=== PATIENT | male | born 1955 | race African-American/Black ===

== ENCOUNTER 2019-05-25 16:00 | Inpatient (IN) | payer OTHER ==
[~2019-05-25] VITALS: Ht 182.9 cm; Wt 95.3 kg
--- NOTE | 2019-05-25 16:00 | NUR ---
PT TO ROOM VIA EMS STRETCHER, EMS GAVE 2 MG, IM OF VERSED ENROUTE AND PUSHED 2 MG VERSED IVP UPON ARRIVAL. PT HAVING FINE TREAMORS TO UPPER EXTREMITIES.
--- NOTE | 2019-05-25 16:08 | NUR ---
PREPARING TO INTUBATE. 20 MG ETOMIDATE, IVP AT [address] SORIANO 100 MG ROCURONIUM, IVP AT [address] SORIANO 7.5 ET TUBE PLACED WITH NO DIFFICULTY AT [address] SORIANO. + COLOR CHANGE AND + BILATERAL AUSCULTATION NOTED BY NADIR TRACY. TUBE 21 AT THE LIP AND SECURED WITH COMMERCIAL TUBE NORRIS. 1620: 18F OG PLACED BY DR SORIANO. PROPOFOL INITIATED AT 30MCG/KG/MIN AT 1623 DR SORIANO PUSHED 50 MG OF PROPOFOL, BP 201/106. 16 F KHOURY PLACED BY Toni TRACY WITH NO DIFFICULTY AT 1620.
[2019-05-25] MEDS ORDERED: DILANTIN-1125 MG/5 M PO (17:05)
[2019-05-25] MEDS ORDERED: ADLT ASA LOW81 MG PO (17:06)
[2019-05-25] MEDS ORDERED: DEPAKOTE500 MG PO (17:06)
[2019-05-25] MEDS ORDERED: LISINOPRIL10 M1 PO (17:06)
[2019-05-25] MEDS ORDERED: LIPITOR20 MG PO (17:07)
[2019-05-25 17:12] LABS: URINE BILIRUBIN - DIPSTICK NEGATIVE (NEGATIVE); URINE BLOOD DIPSTICK SMALL (NEGATIVE); URINE COLOR YELLOW; URINE GLUCOSE - DIPSTICK NEGATIVE (NEGATIVE); URINE KETONE NEGATIVE (NEGATIVE); URINE LEUK ESTERASE NEGATIVE (NEGATIVE); URINE NITRITE - DIPSTICK NEGATIVE (Negative); URINE PROTEIN - DIPSTICK NEGATIVE (NEG-TRACE); URINE UROBILINOGEN - DIPSTICK 0.2 E.U./dL (0.2)
--- NOTE | 2019-05-25 17:12 | NUR ---
PT REMAINS STABLE , INTUBATED ON VENTILATOR AT 16 BREATHS PER MINUTE. BP 146/89, P 97, O2 SAT 100%. FC TO BSD 400 CC CLEAR STRAW COLORED URINE. APPROX 100CC YELLOW LIQUID VIA OGTUBE TO SUCITON. PT WITH HANDCUFF TO LT WRIST AND LT RAIL, 2 DOC GUARDS IN ROOM
[2019-05-25 17:13] LABS: HEMATOCRIT 39.6 % (39.0-50.0); HEMOGLOBIN 12.2 g/dl (14.0-18.0); IMMATURE GRANULOCYTES 1.4 % (0.0-5.0); MEAN CELL VOLUME 92.7 fL CALC (80.0-100.0); MEAN CORPUSCULAR HGB 28.6 pG CALC (26.0-32.0); MEAN CORPUSCULAR HGB CONC 30.8 g/L CALC (32.0-36.0); NEUT# 3.99 thou/uL (1.82-7.42); RED BLOOD COUNT 4.27 mill/uL (4.70-6.10); RED CELL DISTRI WIDTH 15.1 % (11.5-15.5)
--- NOTE | 2019-05-25 17:20 | NUR ---
PT TAKEN TO CT WITH NURSE AND RT ON BAG ASSIST VENTILATION VIA ET TUBE. MONITORS ASSESSED.
[2019-05-25 17:26] LABS: ALBUMIN 4.1 g/dL (3.2-5.0); ALKALINE PHOSPHATASE 86 u/l (38-126); ANION GAP 16 (6-22 (CALC)); BILIRUBIN, TOTAL 0.5 mg/dL (0.0-1.4); BUN 11 mg/dL (8-23); BUN/CREATININE RATIO 14 (12-20 (CALC)); CARBON DIOXIDE 28 mmol/l (22-30); CHLORIDE 97 mmol/l (95-108); CREATININE 0.8 mg/dL (0.7-1.3); GFR > 60 ML/MIN (>=60 (CALC)); GFR FOR AFR.AMER. > 60 ML/MIN (>=60 (CALC)); LIPASE 68 u/l (23-300); POTASSIUM 4.2 mmol/l (3.5-5.1); SGOT/AST 38 u/l (19-48); SODIUM 137 mmol/l (137-146); TOTAL PROTEIN 7.7 g/dL (6.3-8.2)
[2019-05-25 17:37] LABS: MYOGLOBIN 342 ng/mL (0 - 121)
[2019-05-25 17:40] LABS: BARBITURATES POSITIVE (NEGATIVE); COCAINE NEGATIVE (NEGATIVE); METHADONE NEGATIVE (NEGATIVE); OXCYCODONE NEGATIVE (NEGATIVE); TETRAHYDROCANNABIONOL NEGATIVE (NEGATIVE); TRICYLIC ANTIDEPRESSANTS NEGATIVE (NEGATIVE)
[2019-05-25 17:44] LABS: URINE SQUAMOUS EPITHELIAL CELL FEW EPI/hpf (0-FEW)
--- NOTE | 2019-05-25 18:00 | NUR ---
DR SORIANO AT BEDSIDE AND LUMBAR PUNCTURE PERFORMED AND RETURNED 4 VIALS OF CLEAR FLUID FOR SPECIMEN. PT CONTINUES ON PROPOFAL GTT INCREASED TO 60MCG/KG/MIN BP 210/106. NO ACITVE MOVEMENT NOTED. ET TUBE VERIFIED PLACEMENT , 02 SAT 100% ON VENTILATOR ASSISTED BREATHING. F/C EMPTIED OF 1600CC CLEAR YELLOW URINE AT THIS TIME. IVF BOLUS CONTINUES ORDERED.MOUTH SUCTIONED OF LARGE AMOUNT CLEAR AND BLOOD TINGED MUCOUS.
--- NOTE | 2019-05-25 18:51 | NUR ---
RECEIVED REPORT. DIPRIVAN CONTINUES TO INFUSE. BEDRESTING. EYES CLOSED. COEERCTIONAL OFFICERS AT BEDSIDE
--- NOTE | 2019-05-25 19:00 | NUR ---
BEDRESTING. INTUBATED. DIPRIVAN INFUSING. NO TONIC-CLONIC ACTIVITY NOTED AT THIS TIME
--- NOTE | 2019-05-25 19:45 | NUR ---
LEVOPHEN NOT INITIATED B/P NOT ELEVATED PT INTUBATED
--- NOTE | 2019-05-25 20:45 | NUR ---
AWAITNG LAB RESULTS TO DETERMINE FURTHER PLAN OF CARE. CORRECTIONAL OFFICERS NOTIFIED
--- NOTE | 2019-05-25 21:33 | NUR ---
RESTING. STARTING TO MOVE HANDS ABOUT BED. HANDLEING GENTIALS AND RUBBING CHEST. MD NOTIFIED. SOFT WRIST RESTRAINTS APPLIED TO PREVENT EXTUBATION. AWAITING ORDERS FOR ADMISSION
--- NOTE | 2019-05-25 21:48 | NUR ---
CALLED FOR REPORT. NURSE TO CALL BACK
--- NOTE | 2019-05-25 21:55 | NUR ---
REPORT GIVEN TO SIMA LECHUGA
--- NOTE | 2019-05-25 22:00 | NUR ---
EMPTIED 1800ML CLEAR URINE FROM KHOURY DRAINAGE BAG. OG TO LIS. HAD OBTAINED 200ML BILE COLORED DRAINAGE. VENT SETTINGS: AC, FI02 100%M TV 500, RATE 16, PEEP 8. ETT IS SECURED IN CENTER OF LIPS WITH BITE BLOCK TLCL IN PLACE ON RIGHT CHEST. PERIPHERAL SITE RIGHT FOREARM HAS DIPRIVAN INFUSING. NO NOTED SEIZURE ACTIVITY NOTED ON THIS SHIFT TO ICU VIA STRETCHER.
--- NOTE | 2019-05-25 22:26 | NUR ---
63 yr old black male admitted icu5 per stretcher from er. transferred x3 to bed. bed weight obtained. vent cont assisted by pt. cardiac rehab nurse shows sinus tach. #18 rfa diprivan infusing @ 60mcg/kg/min. rij tlc in place. ms infusing @ 100cchr. og in place & clamped. lou cath in place. urine clear yellow. bilat feet shackled together. guards x2 @ bedside. fall precautions initiated.
[2019-05-25 22:30] VITALS: BP 162/100
[2019-05-25 22:45] VITALS: BP 160/100
[2019-05-25 23:00] VITALS: BP 165/109; BP 168/82
[2019-05-25 23:15] VITALS: BP 164/92; BP 171/104
--- NOTE | 2019-05-25 23:30 | NUR ---
rt here. abgs drawn.
[2019-05-26] VITALS (26 sets, daily range): BP systolic 91–181; BP diastolic 62–110
--- NOTE | 2019-05-26 02:00 | NUR ---
eyes closed. vent cont assisted by pt. rn cardiac shows sinus tach hr 101.
--- NOTE | 2019-05-26 04:00 | NUR ---
vent cont assisted by pt. monitoring coordinator shows sinus tach hr 104.
--- NOTE | 2019-05-26 06:00 | NUR ---
no acute change. guards x2 remain @ bedside.
--- NOTE | 2019-05-26 06:15 | NUR ---
xray here. pcxr obtained.
--- NOTE | 2019-05-26 07:30 | NUR ---
pt intubated and sedated; no apparent distress noted; officers x2 at bedside; assessment completed at this time; pt sedated; reacts to painful stimuli; no n/v noted; no s/sx of pain noted; resp even and unlabored; lungs clear bilat; skin color wnl; vent settings maintained at AC mode, TV 500, rate 16, peep 8.0, 50% FiO2; 7.5 ETT intact secured at the 24cm top lip line; hr reg; strong pulses; no edema noted; st on monitor; bilat scds intact; abd soft with bs present; no bm noted per short story writer; lou to gravity draining cloudy yellow urine; cath strap intact; #18 patent to rfa with propofol infusing at 60 mcg/kg/min; TLC intact to RIJ with ivf infusing without complication; no redness or edema noted at site; repositioned to right side; hob elevated; oral care; will continue to monitor closely
--- NOTE | 2019-05-26 08:10 | NUR ---
ATILIO Talley called per typewriter assembler; informed of temp of 102.0; no tylenol ordered/ no am labs/no antibiotics; blood cultures x2 on admit obtained; orders to be placed
--- NOTE | 2019-05-26 08:35 | NUR ---
CLIENT PROFESSIONAL Vest present at bedside to assess pt;
--- NOTE | 2019-05-26 08:47 | NUR ---
swabbed for flu and strep; will continue at this time
--- NOTE | 2019-05-26 08:49 | NUR ---
[facility] called per account underwriter; account underwriter requesting medication record/ medical records
[2019-05-26 08:56] LABS: HEMATOCRIT 40.9 % (39.0-50.0); HEMOGLOBIN 12.9 g/dl (14.0-18.0); IMMATURE GRANULOCYTES 0.4 % (0.0-5.0); MEAN CELL VOLUME 91.5 fL CALC (80.0-100.0); MEAN CORPUSCULAR HGB 28.9 pG CALC (26.0-32.0); MEAN CORPUSCULAR HGB CONC 31.5 g/L CALC (32.0-36.0); NEUT# 10.95 thou/uL (1.82-7.42); RED BLOOD COUNT 4.47 mill/uL (4.70-6.10); RED CELL DISTRI WIDTH 15.3 % (11.5-15.5)
--- NOTE | 2019-05-26 09:02 | NUR ---
call received from nurse Della from [facility]; MAR and medical records requested; [facility] nurse states fax machine is "locked up"; comic book writer request copies to be faxed for MD review; [facility] nurse was able to comfirm dilatin dose of 125mg/ml with pt receiving 6ml total a dose of 150mg
[2019-05-26 09:12] LABS: ALBUMIN 3.4 g/dL (3.2-5.0); ALKALINE PHOSPHATASE 73 u/l (38-126); ANION GAP 13 (6-22 (CALC)); BUN 11 mg/dL (8-23); BUN/CREATININE RATIO 13 (12-20 (CALC)); CARBON DIOXIDE 30 mmol/l (22-30); CHLORIDE 98 mmol/l (95-108); CREATININE 0.9 mg/dL (0.7-1.3); GFR > 60 ML/MIN (>=60 (CALC)); GFR FOR AFR.AMER. > 60 ML/MIN (>=60 (CALC)); POTASSIUM 4.3 mmol/l (3.5-5.1); SGOT/AST 31 u/l (19-48); SODIUM 136 mmol/l (137-146)
[2019-05-26 09:16] LABS: BILIRUBIN, TOTAL 0.8 mg/dL (0.0-1.4)
--- NOTE | 2019-05-26 10:20 | NUR ---
intubated and sedated; repositioned with oral care; no apparent distress noted; st on monitor; lou to gravity; vent intact and maintained; officer x2 at bedside; pt move to ICU bed 1; will continue to monitor
--- NOTE | 2019-05-26 10:45 | NUR ---
awakening trial completed; pt able to open eyes and track this filing writer; diprivan resumed at 50mcg/kg/min; will continue to monitor
--- NOTE | 2019-05-26 11:02 | NUR ---
pt placed on droplet precaution; typewriter assembler explained precautions to [facility] officers and education provided; will continue to monitor
--- NOTE | 2019-05-26 11:22 | NUR ---
Dr Villar present at bedside to assess pt and discuss plan of care
--- NOTE | 2019-05-26 12:05 | NUR ---
intubated and sedated; guards x2 at bedside; no apparent distress noted; vent settings maintained; lou to gravity; og clamped; st on monitor; repositioned to left side with oral care and rom; restraints intact to bilat magazine writer; will continue to monitor
--- NOTE | 2019-05-26 13:20 | NUR ---
DIRECTOR MEDICARE SALESAnderson Dorantest informed of hypotension; orders to be placed
--- NOTE | 2019-05-26 13:35 | NUR ---
fluid bolus initiated; will continue to monitor
--- NOTE | 2019-05-26 14:00 | NUR ---
intubated and sedated; no apparent distress noted; repositioned; sr/pvc on monitor; lou to gravity; vent patent and maintained with prev settings; guards x2 at bedside; will continue to monitor
--- NOTE | 2019-05-26 16:00 | NUR ---
intubated and sedated; no apparent distress noted; resp even and unlabored; vent intact and maintained; lou to gravity; og tube intact; sr/ pvc on monitor; repositioned to right side; oral care; restraints released and reapplied; guards x2 present at bedside; call light within reach; will continue to monitor
--- NOTE | 2019-05-26 18:00 | NUR ---
pt intubated and sedated; no apparent distress noted; resp even and unlabored; vent intact and maintained; sr/ pvc on monitor; lou to gravity; og intact; restraints remains in place; guards x2 at bedside; remains shackled biilat ankles; right wrist shackled to bed; repositioned;
--- NOTE | 2019-05-26 19:00 | NUR ---
vent cont assisted by pt. air sampling and monitoring shows sinus rhythm pvcs hr 86. #18 lfa propofol gtt cont. rij tlc in place. ns infusing @ 100cchr. og in place & clamped. lou cath in place. urine cloudy pavel. bilat scds, fall & droplet precautions cont. requires total care for all needs. skackles cont to bilat ankles & lt wrist. guards x2 @ bedside.
--- NOTE | 2019-05-26 19:00 | NUR ---
vent cont assisted by pt. campus monitor shows sinus rhythm pvcs. #18 rfa diprivan infusing well. rij tlc in place. ns infusing @ 100cchr. og in place & clamped. bilat wrist restrints in place. shackles cont to bilat ankles & lt wrist. lou cath in place. urine cloudy pavel. requires total care with all needs. turned & repositioned. guards x2 @ bedside.
--- NOTE | 2019-05-26 22:00 | NUR ---
vent cont assisted by pt. no distress.
[2019-05-27] VITALS (21 sets, daily range): BP systolic 110–162; BP diastolic 72–96
--- NOTE | 2019-05-27 00:01 | NUR ---
eyes closed. no apparent distress. lou draining well.
--- NOTE | 2019-05-27 02:00 | NUR ---
vent cont assisted by pt. monitoring tech shows sinus rhythm pvcs hr 92.
--- NOTE | 2019-05-27 05:00 | NUR ---
blood drawn & sent to lab. am care given x2 assists.
--- NOTE | 2019-05-27 05:12 | NUR ---
AFTER ABG RESULT, FIO2 DECREASED TO 40% AND PEEP TO 5.
[2019-05-27 05:13] LABS: HEMATOCRIT 37.9 % (39.0-50.0); HEMOGLOBIN 11.7 g/dl (14.0-18.0); MEAN CELL VOLUME 93.6 fL CALC (80.0-100.0); MEAN CORPUSCULAR HGB 28.9 pG CALC (26.0-32.0); MEAN CORPUSCULAR HGB CONC 30.9 g/L CALC (32.0-36.0); RED BLOOD COUNT 4.05 mill/uL (4.70-6.10); RED CELL DISTRI WIDTH 15.3 % (11.5-15.5)
[2019-05-27 05:31] LABS: ALKALINE PHOSPHATASE 67 u/l (38-126); ANION GAP 10 (6-22 (CALC)); BUN 15 mg/dL (8-23); BUN/CREATININE RATIO 15 (12-20 (CALC)); CARBON DIOXIDE 31 mmol/l (22-30); CHLORIDE 102 mmol/l (95-108); GFR > 60 ML/MIN (>=60 (CALC)); GFR FOR AFR.AMER. > 60 ML/MIN (>=60 (CALC)); POTASSIUM 4.4 mmol/l (3.5-5.1); SGOT/AST 24 u/l (19-48); SODIUM 138 mmol/l (137-146); TOTAL PROTEIN 6.3 g/dL (6.3-8.2)
--- NOTE | 2019-05-27 05:45 | NUR ---
xray here. pcxr obtained.
--- NOTE | 2019-05-27 08:00 | NUR ---
PT SEEN AT REST IN THE BED, INTUBATED AND SEDATED. EYES OPEN SLIGHTLY WHEN MOVED, NO INTERACTION WITH NURSE. LUNGS CLEAR, VENTED. PT TURNED Q2H PER SEDATION. KHOURY TO GRAVITY, KELLEY CLOUDY OUTPUT. WRIST RESTRAINTS PER SLIGHT MOVEMENT AT TIMES, PROTECTS FROM PULLING. OG IN PLACE, CLAMPED. SECRETIONS FROM MOUTH, WASHCLOTH PLACED UNDER CHIN. WEAK PEDAL PULSES. GUARDS X 2 AT BEDSIDE AT ALL TIMES.
--- NOTE | 2019-05-27 10:00 | NUR ---
PT REPOSITIONED IN THE BED FOR COMFORT AND PRESERVATION OF SKIN INTEGRITY. PT REMAINS SEDATED, INTUBATED. NINO TRIMBLE HAS SEEN PT THIS MORNING.
--- NOTE | 2019-05-27 12:00 | NUR ---
PT BEFORE, SAME VENT SETTINGS, TURNED Q2H TO PREVENT SKIN BREAKDOWN. PT WAS SUCTIONED ORALLY PER SECRETIONS.
--- NOTE | 2019-05-27 14:00 | NUR ---
PT SEEN BY DR LING AT THIS TIME. DIPRIVAN WEANING HAS BEGUN FOR A TRIAL PRESSURE SUPPORT ONLY. PT SEEN MOVING AROUND MORE, BUT NOT YET AWAKE. PT PROVIDED TYLENOL FOR TEMP 101.4 VIA OG TUBE.
--- NOTE | 2019-05-27 14:02 | NUR ---
Vancomycin consult Age: 63 yo Serum creatinine: 1 mg/dL Height: 72.0 Inches Weight (kg): 90.9 IBW (kg): 77.60 Dosing wt(kg): 90.9 Estimated Creatinine clearance (ml/min): 81.9 Vd (liters): 63.6 (factor used: 0.7 L/kg) Ervin (hr-1): 0.072 Half life (hrs): 9.63 Vancomycin 1000 mg q 12 hrs starting at 1500 today with an expected Cpeak of 25 mcg/ml and an expected Ctrough of 15 mcg/ml. next trough on 05/29/19 at 0230
--- NOTE | 2019-05-27 15:20 | NUR ---
PT HAS BEEN WEANED DOWN TO 5 MKM, STARTING TO MOVE AROUND MORE WHILE IN THE BED. RESPIRATORY THERAPIST HAS BEEN MONITORING PT, NO CONCERNS WHEN EVALUATED.
--- NOTE | 2019-05-27 16:40 | NUR ---
PT TITRATED BACK TO 50 JA/KG/MIN PREVIOUSLY RUNNING. PT SEDATED, WILL ATTEMPT EXTUBATION TOMORROW.
--- NOTE | 2019-05-27 18:45 | NUR ---
REPORT FROM Leda CASTILLO RN. ASSUMED PT. CARE.
--- NOTE | 2019-05-27 19:19 | NUR ---
PT. RESTING COMFORTABLY ON THE VENT IN NO DISTRESS. GUARDS AT BEDSIDE AT THIS TIME. WILL CONTINUE TO CLOSELY MONITOR.
--- NOTE | 2019-05-27 19:55 | NUR ---
PT. FOUND RESTING IN BED IN NO DISTRESS ON THE VENT. SINUS TACH IN THE LOW 100'S. SPO2 IS 100% ON 30% FIO2. BOWEL SOUNDS ACTIVE. DISTIL PULSES INTACT. ET TUBE 23 AT THE LIP. ROM AND RELEASE PROVIDED AND RESTRAINTS REAPPLIED. PT. WITH METAL LEG SHACKLES IN PLACE BY SECURITY GUARDS THAT REMAIN AT BEDSIDE. PROPOFOL DRIP INFUSING AT 50 MCG AT THIS TIME. REMAINS STABLE. BP SLIGHTLY ELEVATED AT 140 SYSTOLIC. CALL LIGHT REMAINS WITHIN REACH. LUNGS CTA. NO EDEMA NOTED. S1, S2 NOTED. WILL CONTINUE TO CLOSELY MONITOR.
--- NOTE | 2019-05-27 20:15 | NUR ---
PT. FOUND WITH NG TUBE CLAMPED AT THIS TIME. CHANGED TO LIT WITH IMMEDIATE RETURN OF GREEN GASTRIC CONTENT. WILL CONTINUE TO CLOSELY MONITOR.
--- NOTE | 2019-05-27 22:05 | NUR ---
PT. REPOSITIONED TO RT. SIDE AT THIS TIME. ORAL CARE AND SUCTIONING PROVIDED. NG TUBE REMAINS CLAMPED AT THIS TIME AFTER ADMINISTRATION OF ANTIEPILEPTIC MECIATIONS. REMAINS FEBRILE AT 101.2. WILL CONTINUE TO REASSESS.
[2019-05-28] VITALS (18 sets, daily range): BP systolic 118–179; BP diastolic 59–97
--- NOTE | 2019-05-28 00:15 | NUR ---
PT. REPOSITIONED SUPINE FOR COMFORT. ORAL CARE AND SUCTIONING PROVIDED AT THIS TIME. ZOSYN COMPLETE, NO REACTION NOTED. GUARDS REMAIN AT BEDSIDE AT THIS TIME. ROM AND RELEASE PROVIDED. PT. REMAINS RESPONSIVE TO PAINFUL STIMULI. IV TO RT. F/A REMOVED AT THIS TIME. CALL LIGHT REMAINS WITHIN REACH. WILL CONTINUE TO CLOSELY MONITOR.
--- NOTE | 2019-05-28 04:41 | NUR ---
LABS OBTAINED AT THIS TIME FROM CENTRAL LINE AND LUMENS FLUSHED AT THIS TIME. PT. REMAINS STABLE. 2 GUARDS REMAIN AT BEDSIDE AT THIS TIME. BP/HR STABLE. CONTINUE ON PROPOFOL AT 60 MCG AT THIS TIME. WILL CONTINUE TO CLOSELY MONITOR.
[2019-05-28 05:05] LABS: HEMATOCRIT 33.9 % (39.0-50.0); HEMOGLOBIN 10.5 g/dl (14.0-18.0); IMMATURE GRANULOCYTES 0.6 % (0.0-5.0); MEAN CORPUSCULAR HGB 29.4 pG CALC (26.0-32.0); NEUT# 7.69 thou/uL (1.82-7.42); RED BLOOD COUNT 3.57 mill/uL (4.70-6.10); RED CELL DISTRI WIDTH 15.4 % (11.5-15.5)
[2019-05-28 05:29] LABS: ANION GAP 10 (6-22 (CALC)); BUN 16 mg/dL (8-23); BUN/CREATININE RATIO 17 (12-20 (CALC)); CARBON DIOXIDE 29 mmol/l (22-30); CHLORIDE 104 mmol/l (95-108); CREATININE 0.9 mg/dL (0.7-1.3); GFR > 60 ML/MIN (>=60 (CALC)); GFR FOR AFR.AMER. > 60 ML/MIN (>=60 (CALC)); POTASSIUM 4.1 mmol/l (3.5-5.1); SODIUM 139 mmol/l (137-146)
--- NOTE | 2019-05-28 06:05 | NUR ---
ZOSYN INFUSED WITHOUT SIGNS OF INFILTRATION OR REACTION. REMAINS STABLE ON THE VENT. REPOSITIONED TO SUPINE AT THIS TIME. ORAL CARE AND SUCTIONING PROVIDED AT THIS TIME. 2 GUARDS REMAIN AT PATIENT BEDSIDE AT THIS TIME. BP/HR STABLE. CALL LIGHT REMAINS WITHIN REACH. ROM AND RELEASE PROVIDED.
--- NOTE | 2019-05-28 08:00 | NUR ---
PT IS BEING WEANED FROM DIPRIVAN THIS MORNING, NOW SEEN TO BE AWAKE AND INTERACTIVE. LUNGS CLEAR. ABDOMEN SOFT. RESTRAINTS REMAIN IN PLACE PER REACHING FOR TUBES. GUARDS X 2 AT BEDSIDE. RIJ TLC IN PLACE AND FUNCTIONAL.
--- NOTE | 2019-05-28 09:59 | NUR ---
PT HAS BEEN EXTUBATED WITHOUT DIFFICULTY. PT PROVIDED WATER, WHICH HE IS SWALLOWING WITHOUT CHOKING OR COUGH. WRIST RESTRAINTS RELEASED. OG TUBE REMOVED AT SAME TIME ET TUBE. PT CONVERSANT, APPROPRIATE.
--- NOTE | 2019-05-28 13:00 | NUR ---
PT PROVIDED FULL LIQUID DIET FOR LUNCH. HE DID NOT EAT MUCH, BUT TOLERATED WHAT HE DID EAT. PT DENIES PAIN, NO SEIZURE ACTIVITY.
--- NOTE | 2019-05-28 19:00 | NUR ---
awake. denies resp diff. pt admits "i take all of my medicine." o2 cont per nc. coffee taster shows sinus rhythm pvcs. rij tlc in place. ns infusing @ 100cchr. po fluids taken well. lou cath in place. urine cloudy pavel. shackles cont. guards x2 @ bedside. fall precautions cont.
--- NOTE | 2019-05-28 22:00 | NUR ---
watching tv. no resp diff. o2 cont per nc.
[2019-05-29] VITALS (13 sets, daily range): BP systolic 117–193; BP diastolic 63–104
--- NOTE | 2019-05-29 00:01 | NUR ---
eyes closed. no distress. hall monitor shows sinus rhythm pvcs hr 88.
--- NOTE | 2019-05-29 02:30 | NUR ---
blood rawn & sent to lab.
[2019-05-29 02:37] LABS: HEMOGLOBIN 9.7 g/dl (14.0-18.0); IMMATURE GRANULOCYTES 0.2 % (0.0-5.0); MEAN CELL VOLUME 92.5 fL CALC (80.0-100.0); MEAN CORPUSCULAR HGB CONC 31.3 g/L CALC (32.0-36.0); NEUT# 3.28 thou/uL (1.82-7.42); RED BLOOD COUNT 3.35 mill/uL (4.70-6.10); RED CELL DISTRI WIDTH 15.3 % (11.5-15.5)
[2019-05-29 02:51] LABS: ANION GAP 9 (6-22 (CALC)); BUN 15 mg/dL (8-23); BUN/CREATININE RATIO 18 (12-20 (CALC)); CARBON DIOXIDE 31 mmol/l (22-30); CHLORIDE 102 mmol/l (95-108); CREATININE 0.9 mg/dL (0.7-1.3); GFR > 60 ML/MIN (>=60 (CALC)); GFR FOR AFR.AMER. > 60 ML/MIN (>=60 (CALC)); SODIUM 137 mmol/l (137-146)
--- NOTE | 2019-05-29 04:00 | NUR ---
resting quietly. resps even & unlabored. no apparent distress. o2 cont.
--- NOTE | 2019-05-29 06:00 | NUR ---
eyes closed. no acute change in condition.
--- NOTE | 2019-05-29 07:10 | NUR ---
pt awake in bed; no apparent distress noted; pt offers no complaints; assessment completed at this time; pt alert and oriented; pt states I'm at the hospital and [facility]; pt admits to feeling soreness and tiredness; no n/v noted; resp even and unlabored; lungs clear/ diminished bases; skin color wnl; o2 per nc at 2L; prod cough of yellow/bloody sputum; hr reg; strong pulses; no edema noted; sr/pvc on monitor; abd soft with bs present; no bm noted per contract writer; pt admits to passing flatus; lou to gravity draining well; cath strap; TLC intact to RIJ with ivf infusing without complication; no redness or edema noted at site; abrasion/scab noted to right upper lateral thigh; pt encouraged to reposition self/ assist with adls; shackled via bilat ankles; guards x2 at bedside; call light within reach; will continue to monitor
--- NOTE | 2019-05-29 07:35 | NUR ---
meal set up for pt; pt noted with weakness; increase in activity encouraged; guards declined meals for breakfast, lunch and dinner; dietary notified; will continue to monitor
--- NOTE | 2019-05-29 08:12 | NUR ---
resting in bed with eyes closed; easily aroused; offers no complaints; iv intact and patent; sr/pvc on monitor; o2 per nc; lou to gravity; guards x2 present at bedside; call light within reach; will continue to monitor
--- NOTE | 2019-05-29 09:00 | NUR ---
am meds explained and administered; pt tolerated well; pt voices concerns of rash; ATILIO Naqvi present at bedside to assess pt and discuss plan of care;
--- NOTE | 2019-05-29 09:50 | NUR ---
po fluids provided; iv tubing changed; pt REFUSED bath and linen change at this time; guards x2 at bedside;
--- NOTE | 2019-05-29 10:09 | NUR ---
pt resting in bed with eyes closed; easily arousable; no apparent distress noted; sr/pvc on monitor; lou to gravity; o2 per nc; guards x2 at bedside; call light within reach; will continue to monitor
--- NOTE | 2019-05-29 12:05 | NUR ---
pt awake in bed; lunch tolerated well; no apparent distress noted; pt offers no complaints; pt strongly encouraged resposition self/ increase acitivity; declined; o2 per nc; lou to gravity; iv intact and patent; no redness or edema noted at site; sr/pvc on monitor; call light within reach; will continue to monitor
--- NOTE | 2019-05-29 12:45 | NUR ---
I.S. PROVIDED; PT ABLE TO PULL APPROX 1100ML; Q1 HOUR USE X10 REPS EXPLAINED; WILL CONTINUE TO MONITOR
--- NOTE | 2019-05-29 14:08 | NUR ---
DR LING & NINO KAN @BEDSIDE ASSESSING PT & DISCUSSING POC.
--- NOTE | 2019-05-29 14:10 | NUR ---
awake in bed; plan of care explained per Dr Villar; no apparent distress noted; resp even and unlabroed; sr/pvc on monitor; iv intact and patent; lou to gravity; o2 per nc; call light within reach; will continue to monitor
--- NOTE | 2019-05-29 15:30 | NUR ---
S: FARAZ EDMOND is a 63 M who presents with RIGHT UPPER IGNACIO PULMONARY INFLITRATE. He has a history of SEIZURES, HYPERTENSION, AND HYPERLIPIDEMIA. All medications in patient's chart were reviewed. O: VS: BP 142/76 MMHG, P 83 BPM, RR 20 BREATHS/MIN, T 99.4 F W 101.661 KG, HT 72 IN, Scr 0.9 MG/DL, CrCl= 91 ML/MIN A: Blood culture is pending P: Patient is on ZOSYN 3.375G IV Q6H. Vancomycin ordered for pharmacy to dose. TROUGH LEVEL OBTAINED WAS 7. INCREASE Vancomycin TO 1G IV Q8H. Vancomycin trough is drawn before the 4th dose on 05/30/19 @ 0930. Vancomycin goal trough is between 15-20 mcg/ml. Pharmacy will follow and or advise on antibiotics use as needed.
--- NOTE | 2019-05-29 16:15 | NUR ---
awake in bed; no apparent distress noted; resp even and unlabored; sr/pvc on monitor; iv intact and patent; no redness or edema noted at site; pt able to reposition self as per copywriter request; top linens changed; pt cont to decline am care; guards x2 at bedside; call light within reach; will continue to monitor
--- NOTE | 2019-05-29 16:20 | NUR ---
Dr Villar on unit; verbal order received that pt may be down graded to med surg
--- NOTE | 2019-05-29 17:59 | NUR ---
awake in bed; no apparent distress noted; pt offers no complaints; resp even and unlabored; o2 per nc; iv intact and patent; sr/pvc on monitor; guards x2 at bedside; bed in lowest position; call light within reach
--- NOTE | 2019-05-29 18:35 | NUR ---
bed assignment received; pt to transfer to ms [id number]
--- NOTE | 2019-05-29 18:40 | NUR ---
REPORT FROM Santiago HAGER RN. ASSUMED PT. CARE.
--- NOTE | 2019-05-29 19:45 | NUR ---
PT. RESTING IN BED IN NO DISTRESS. AWAKE, ALERT, ORIENTED X 3. 2 GUARDS REMAIN AT BEDSIDE. RESPS EVEN AND UNLABORED. SKIN WARM AND DRY. AFEBRILE. PATEL. BON. LUNGS CTA. BOWEL SOUNDS ACTIVE THROUGHOUT. DISTIL PULSES INTACT. DENIES COMPLAINTS OF PAIN OTHER THAN CHAPPED LIPS. S1, S2 NOTED. PROVIDED WITH MULTIPLE JUICES PER PATIENT REQUEST. STATES HE IS UNSURE OF LAST BM. CALL LIGHT WITHIN REACH. WILL CONTINUE TO CLOSELY MONITOR.
--- NOTE | 2019-05-29 21:15 | NUR ---
PT. MEDICATED AT THIS TIME PER ORDERS. PT. WITH SMALL AMOUNT OF INCONTINENCE OF STOOL AT THIS TIME. CLEANSED AND LINENS CHANGED. WILL CONTINUE TO MONITOR.
--- NOTE | 2019-05-29 21:35 | NUR ---
REPORT TO CALISTA JOSHUA.
--- NOTE | 2019-05-29 21:50 | NUR ---
PT. TAKEN OVER TO MED/SURG AT THIS TIME.
--- NOTE | 2019-05-29 21:53 | NUR ---
PT ARRIVED TO MED-SURG FLOOR VIA WC ACCOMPANIED BY ICU NURSE TRANSPORTING. PT APPEARS TO BE IN STABLE CONDITION, PT AMBULATED W/WEAK GAIT FROM WC TO TOILET AND INSTRUCTED TO PULL RED CORD WHEN HE IS FINISHED AND NOT TO AMBULATE W/OUT ASSISTANCE, PT WEAK GAIT. GUARDS X2 AT BEDSIDE.
--- NOTE | 2019-05-29 23:50 | NUR ---
PT MEDICATED W/IV ANTIBIOTIC THERAPY. URINAL PROVIDED AT BEDSIDE. PT DENIES ANY OTHER NEEDS AT THIS TIME. CALL LIGHT W/IN REACH.
[2019-05-30] VITALS (8 sets, daily range): BP systolic 142–186; BP diastolic 88–103
--- NOTE | 2019-05-30 01:10 | NUR ---
PT ASSISTED IN CLEANING OF INCONTINENT STOOL, BSC PLACED AT BEDSIDE FOR CONVENIENCE, PT WAS UNABLE TO MAKE IT TO THE BSC. BEDDING CHANGED AT THIS TIME.
--- NOTE | 2019-05-30 03:35 | NUR ---
PT ASSISTED IN CLEANING OF INCONTINENT STOOL. PT UNABLE TO MAKE IT TO BSC IN TIME AND ASSISTED IN CHANGING BED PADS, GOWN. DENIES ANY OTHER NEEDS. AIDE IN W/PT.
[2019-05-30 04:47] LABS: HEMATOCRIT 35.9 % (39.0-50.0); HEMOGLOBIN 10.9 g/dl (14.0-18.0); IMMATURE GRANULOCYTES 1.2 % (0.0-5.0); MEAN CELL VOLUME 92.3 fL CALC (80.0-100.0); MEAN CORPUSCULAR HGB CONC 30.4 g/L CALC (32.0-36.0); NEUT# 2.3 thou/uL (1.82-7.42); RED BLOOD COUNT 3.89 mill/uL (4.70-6.10); RED CELL DISTRI WIDTH 15.1 % (11.5-15.5)
--- NOTE | 2019-05-30 05:02 | NUR ---
PT MEDICATED ORDERS PROVIDE AND URINAL EMPTIED OF 700CC OF CLEAR YELLOW URINE. DENIES ANY OTHER NEEDS AT THIS TIME. CALL LIGHT W/IN REACH.
--- NOTE | 2019-05-30 07:15 | NUR ---
REPORT RECEIVED FROM CALISTA JOSHUA;PT APPEARS TO BE SLEEPING IN SUPINE POSITION WITH X2 GUARDS AT BEDSIDE AND ANKLE SHACKLED TO BEDSIDE;RESPIRATIONS APPEAR EVEN AND UNLABORED ON RA;NO S/S OF DISTRESS NOTED;DROPLET PRECAUTIONS IN PLACE FOR FLU;ALL SAFETY PRECAUTIONS IN PLACE WITH BED IN THE LOWEST POSITION AND CALL LIGHT IN REACH;WILL CONTINUE TO MONITOR
--- NOTE | 2019-05-30 08:10 | NUR ---
PT RESTING AT BEDSIDE WITH X2 GUARDS AT SIDE,A&O X3;VS OBTAINED AND ASSESSMENT COMPLETED;CURRENT BP 169/97 HR 90, ALL MORNING MEDICATIONS TO BE ADMINISTERED;PT DENIES ANY CURRENT PAIN OR DISCOMFORTS,PAIN SCALE AND REPORTING EDUCATED;RESPIRATIONS EVEN AND UNLABORED ON RA;INSTRUCTED ON I.S. USAGE AND PT VERBALIZES UNDERSTANDING TO USE 10X PER HOUR;ABDOMEN SOFT ON PALPATION AND ACTIVE IN ALL 4 QUADRANTS;STRONG PEDAL PULSES;SKIN INTACT BUT RASH NOTED TO RLE;RIJ TRIPLE LUMEN INFUSING NS @ 100ML/HR,SITE APPEARS HEALTHY;SEIZURE AND DROPLET PRECAUTIONS IN PLACE;PT DENIES ANY ADDITIONAL NEEDS AND IS ENCOURAGED TO CALL FOR ASSISTANCE IF NEEDED;FALL PRECAUTIONS IN PLACE WITH CALL LIGHT IN REACH;WILL CONTINUE TO MONITOR
--- NOTE | 2019-05-30 10:05 | NUR ---
PT CURRENT BP 172/90 HR 84, PT TO BE MEDICATED WITH PRN APRESOLINE 10MG IVP BY CALISTA BOTELLO; WILL MONITOR FOR EFFECTIVENESS
--- NOTE | 2019-05-30 10:16 | NUR ---
LAB AT BEDSIDE
--- NOTE | 2019-05-30 11:11 | NUR ---
BP RE-CHECK 170/97 HR 96, PT TO BE ADMINISTERED LISINOPRIL PER ORDER;WILL CONTINUE TO MONITOR
--- NOTE | 2019-05-30 11:20 | NUR ---
PT RESTING IN SEMI FOWLERS POSITION WITH X2 GUARDS AT BEDSIDE AND RIGHT ANKLE SHACKLED TO BEDSIDE;RESPIRATIONS EVEN AND UNLABORED ON RA;PT DENIES ANY CURRENT PAIN OR DISCOMFORTS;BP 170/97 HR 96, ADDITIONAL DOSE OF LISINOPRIL 10MG PO ADMINISTERED AT THIS TIME PER ORDER;IV FLUIDS INFUSING TO RIJ @ 10ML/HR PER ORDER;PT DENIES ANY ADDITIONAL NEEDS AND IS ENCOURAGED TO CALL FOR ASSISTANCE IF NEEDED;CALL LIGHT IN REACH;WILL CONTINUE TO MONITOR
--- NOTE | 2019-05-30 12:05 | NUR ---
BP RE-CHECK 167/103 HR 88, MICHAELLE,ANCHIDI NOTIFIED;NO NEW ORDERS RECEIVED AT THIS TIME;WILL CONTINUE TO MONITOR
--- NOTE | 2019-05-30 12:22 | NUR ---
AT BEDSIDE DISCUSSING POC.
[2019-05-30] MEDS ORDERED: LEVAQUIN750 MG PO (12:32)
[2019-05-30] MEDS ORDERED: TAM75CAP PO (12:32)
--- NOTE | 2019-05-30 13:24 | NUR ---
PT TO BE MEDICATED WITH LABETALOL 10MG IVP FOR BP 176/92 HR 85 BY ROSMERYRN
--- NOTE | 2019-05-30 15:10 | NUR ---
ALL DISCHARGE INSTRUCTIONS PROVIDED AT THIS TIME;PT INSTRUCTED TO MONITOR BP AND TAKE ADDITIONAL LISINOPRIL IF BP >150;RX FOR TAMIFLU AND LEVOQUIN PROVIDED TO GUARDS FOR D/C HOME;IV SITE REMOVED WITH CATHETER INTACT BE CALISTA YBARRA;WHEELCHAIR TO BE PROVIDED FOR DISCHARGE;AWAITING TRANSPORTATION FROM [facility] [place].
--- NOTE | 2019-05-30 15:45 | NUR ---
PT RESTING IN IN SEMI FOWLERS POSITION WITH X2 GUARDS AT BEDSIDE;RESPIRATIONS EVEN AND UNLABORED ON RA;PT DENIES ANY CURRENT PAIN OR DISCOMFORTS;AWAITING TRANSPORTATION FROM [facility] OFFICE FOR D/C.WILL CONTINUE TO MONITOR
--- NOTE | 2019-05-30 16:31 | NUR ---
Discharge instructions given. Patient verbalizes understanding of same. [facility]. All belongings sent with pt. PT TRANSPORTED TO [facility] VIA WHEELCHAIR IN STABLE CONDITION ACCOMPANIED BY X2 GUARDS FOR DISCHARGE.
== END 2019-05-30 16:31 | DRG 101 ==
LOC: ED 16:00 → ED-I 21:14 → ED 21:27 → ICU 21:28 → MS2 21:28 → ICU 05-26 10:26 → MS2 05-29 21:50
PROVIDERS: Family Medicine; Nurse Practitioner Family; ADMIT Internal Medicine; ATTEND Internal Medicine
PROC: 009U3ZX Drainage of Spinal Canal, Percutaneous Approach, Diagnostic (ICD-10-PCS; principal; 2019-05-25)
PROC: 0BH17EZ Insertion of Endotracheal Airway into Trachea, Via Natural or Artificial Opening (ICD-10-PCS; 2019-05-25)
PROC: 5A1945Z Respiratory Ventilation, 24-96 Consecutive Hours (ICD-10-PCS; 2019-05-25)
PROC: 02HV33Z Insertion of Infusion Device into Superior Vena Cava, Percutaneous Approach (ICD-10-PCS; 2019-05-25)
PROC: 0T9B70Z Drainage of Bladder with Drainage Device, Via Natural or Artificial Opening (ICD-10-PCS; 2019-05-25)
DX: G40.901 Epilepsy, unspecified, not intractable, with status epilepticus (principal); E87.2 Acidosis; J10.1 Influenza due to other identified influenza virus with other respiratory manifestations; I10 Essential (primary) hypertension; E78.5 Hyperlipidemia, unspecified; R21 Rash and other nonspecific skin eruption; Z87.820 Personal history of traumatic brain injury
CPT/HCPCS: J1650; S0164

== ENCOUNTER 2019-08-08 | Emergency (ER) | payer OTHER ==
[~2019-08-08] MED LIST: ADLT ASA LOW81 MG PO; DEPAKOTE500 MG PO; DILANTIN-1125 MG/5 M PO; LEVAQUIN750 MG PO; LIPITOR20 MG PO; LISINOPRIL10 M1 PO; TAM75CAP PO
[2019-08-08 08:51] LABS: IMMATURE GRANULOCYTES 0.2 % (0.0-5.0); MEAN CELL VOLUME 90.6 fL CALC (80.0-100.0); MEAN CORPUSCULAR HGB 28.2 pG CALC (26.0-32.0); MEAN CORPUSCULAR HGB CONC 31.1 g/L CALC (32.0-36.0); NEUT# 7.02 thou/uL (1.82-7.42); RED BLOOD COUNT 4.68 mill/uL (4.70-6.10); RED CELL DISTRI WIDTH 15.8 % (11.5-15.5)
[2019-08-08 08:53] LABS: HEMATOCRIT 42.4 % (39.0-50.0); HEMOGLOBIN 13.2 g/dl (14.0-18.0)
[2019-08-08 08:56] LABS: URINE BILIRUBIN - DIPSTICK NEGATIVE (NEGATIVE); URINE BLOOD DIPSTICK TRACE-INTACT (NEGATIVE); URINE COLOR YELLOW; URINE GLUCOSE - DIPSTICK NEGATIVE (NEGATIVE); URINE KETONE NEGATIVE (NEGATIVE); URINE LEUK ESTERASE NEGATIVE (NEGATIVE); URINE NITRITE - DIPSTICK NEGATIVE (Negative); URINE PH 6.5 (4.5-8.0); URINE PROTEIN - DIPSTICK NEGATIVE (NEG-TRACE); URINE SPECIFIC GRAVITY 1.015; URINE UROBILINOGEN - DIPSTICK 0.2 E.U./dL (0.2)
[2019-08-08 09:00] LABS: BARBITURATES POSITIVE (NEGATIVE); COCAINE NEGATIVE (NEGATIVE); METHADONE NEGATIVE (NEGATIVE); OXCYCODONE NEGATIVE (NEGATIVE); TETRAHYDROCANNABIONOL NEGATIVE (NEGATIVE); TRICYLIC ANTIDEPRESSANTS NEGATIVE (NEGATIVE)
[2019-08-08] MEDS ORDERED: DILANTIN100 MG PO (09:18)
[2019-08-08 09:20] LABS: ANION GAP 13 (6-22 (CALC)); BILIRUBIN, TOTAL 0.7 mg/dL (0.0-1.4); BUN 12 mg/dL (8-23); BUN/CREATININE RATIO 13 (12-20 (CALC)); CARBON DIOXIDE 33 mmol/l (22-30); CHLORIDE 99 mmol/l (95-108); CREATININE 0.9 mg/dL (0.7-1.3); GFR > 60 ML/MIN (>=60 (CALC)); GFR FOR AFR.AMER. > 60 ML/MIN (>=60 (CALC)); PHENYTOIN (DILANTIN) 9 ug/mL (10 - 20); POTASSIUM 4.8 mmol/l (3.5-5.1); SODIUM 139 mmol/l (137-146)
[2019-08-08 09:34] LABS: ALBUMIN 4.7 g/dL (3.2-5.0); ALKALINE PHOSPHATASE 138 u/l (38-126); SGOT/AST 43 u/l (19-48); TOTAL PROTEIN 8.7 g/dL (6.3-8.2)
== END 2019-08-08 12:40 | DRG 101 ==
PROVIDERS: Family Medicine
DX: G40.409 Other generalized epilepsy and epileptic syndromes, not intractable, without status epilepticus (principal); I10 Essential (primary) hypertension
CPT/HCPCS: J3360

== ENCOUNTER 2020-06-12 17:46 | Emergency (ER) | payer OTHER ==
[~2020-06-12] VITALS: Ht 188 cm; Wt 86.0 kg
[~2020-06-12 17:46] MED LIST changes: +DILANTIN100 MG PO
[2020-06-12 20:07] VITALS: BP 158/86
== END 2020-06-12 20:06 | DRG 125 ==
LOC: ED 17:46
PROC: 0HQ1XZZ Repair Face Skin, External Approach (ICD-10-PCS; principal; 2020-06-12)
PROC: 0HQ0XZZ Repair Scalp Skin, External Approach (ICD-10-PCS; 2020-06-12)
DX: S01.111A Laceration without foreign body of right eyelid and periocular area, initial encounter (principal); S01.01XA Laceration without foreign body of scalp, initial encounter; H11.31 Conjunctival hemorrhage, right eye; I10 Essential (primary) hypertension; G40.909 Epilepsy, unspecified, not intractable, without status epilepticus; W10.9XXA Fall (on) (from) unspecified stairs and steps, initial encounter; Y92.149 Unspecified place in prison as the place of occurrence of the external cause; T46.5X6A Underdosing of other antihypertensive drugs, initial encounter; Z91.128 Patient's intentional underdosing of medication regimen for other reason; Z20.822 Contact with and (suspected) exposure to COVID-19

== ENCOUNTER 2020-08-23 00:53 | Emergency (ER) | payer OTHER ==
[~2020-08-23] VITALS: Ht 188 cm; Wt 92.0 kg
[2020-08-23] MEDS ORDERED: DEPAKOTE500 MG PO (01:41)
[2020-08-23] MEDS ORDERED: DILANTIN100 MG PO (01:41)
[2020-08-23] MEDS ORDERED: DEPAKOTE250 MG PO (01:42)
[2020-08-23 01:52] LABS: HEMATOCRIT 37.5 % (39.0-50.0); HEMOGLOBIN 11.4 g/dl (14.0-18.0); IMMATURE GRANULOCYTES 0.5 % (0.0-5.0); MEAN CORPUSCULAR HGB 25.6 pG CALC (26.0-32.0); MEAN CORPUSCULAR HGB CONC 30.4 g/dL CAL (32.0-36.0); NEUT# 8.23 thou/uL (1.82-7.42); RED BLOOD COUNT 4.46 mill/uL (4.70-6.10); RED CELL DISTRI WIDTH 16.9 % (11.5-15.5)
[2020-08-23 02:02] LABS: MEAN CELL VOLUME 84.1 fL CALC (80.0-100.0)
[2020-08-23 02:31] LABS: ALBUMIN 4.9 g/dL (3.2-5.0); ALKALINE PHOSPHATASE 116 u/l (38-126); ANION GAP 13 (6-22 (CALC)); BILIRUBIN, TOTAL 0.6 mg/dL (0.0-1.4); BUN 12 mg/dL (8-23); BUN/CREATININE RATIO 13 (12-20 (CALC)); CARBON DIOXIDE 32 mmol/l (22-30); CHLORIDE 95 mmol/l (95-108); ETHYL ALCOHOL 0 mg/dl (0-30); GFR > 60 ML/MIN (>=60 (CALC)); GFR FOR AFR.AMER. > 60 ML/MIN (>=60 (CALC)); POTASSIUM 4.2 mmol/l (3.5-5.1); SGOT/AST 27 u/l (19-48); SODIUM 135 mmol/l (137-146)
[2020-08-23 03:18] LABS: PHENYTOIN (DILANTIN) 10 ug/mL (10 - 20)
[2020-08-23 05:07] VITALS: BP 159/89
== END 2020-08-23 05:07 | disposition short-term general hospital (02) | DRG 101 ==
LOC: ED 00:53
PROVIDERS: Emergency Medicine
DX: G40.409 Other generalized epilepsy and epileptic syndromes, not intractable, without status epilepticus (principal); I10 Essential (primary) hypertension; Z20.822 Contact with and (suspected) exposure to COVID-19; Z79.899 Other long term (current) drug therapy

== ENCOUNTER 2020-12-21 02:54 | Emergency (ER) | payer OTHER ==
[~2020-12-21] VITALS: Ht 188 cm; Wt 92.0 kg
[~2020-12-21 02:54] MED LIST changes: +DEPAKOTE250 MG PO
[2020-12-21 03:25] LABS: HEMATOCRIT 39.8 % (39.0-50.0); HEMOGLOBIN 12.1 g/dl (14.0-18.0); IMMATURE GRANULOCYTES 0.4 % (0.0-5.0); MEAN CELL VOLUME 84.5 fL CALC (80.0-100.0); MEAN CORPUSCULAR HGB 25.7 pG CALC (26.0-32.0); MEAN CORPUSCULAR HGB CONC 30.4 g/dL CAL (32.0-36.0); NEUT# 4.65 thou/uL (1.82-7.42); RED BLOOD COUNT 4.71 mill/uL (4.70-6.10); RED CELL DISTRI WIDTH 18.2 % (11.5-15.5)
[2020-12-21 03:43] LABS: ALBUMIN 4.8 g/dL (3.2-5.0); ALKALINE PHOSPHATASE 96 u/l (38-126); ANION GAP 18 (6-22 (CALC)); BUN 12 mg/dL (8-23); BUN/CREATININE RATIO 11 (12-20 (CALC)); CARBON DIOXIDE 26 mmol/l (22-30); CHLORIDE 100 mmol/l (95-108); CREATININE 1.1 mg/dL (0.7-1.3); GFR > 60 ML/MIN (>=60 (CALC)); GFR FOR AFR.AMER. > 60 ML/MIN (>=60 (CALC)); PHENYTOIN (DILANTIN) 3 ug/mL (10 - 20); SGOT/AST 32 u/l (19-48); SODIUM 139 mmol/l (137-146); TOTAL PROTEIN 9.1 g/dL (6.3-8.2)
[2020-12-21 03:48] LABS: BILIRUBIN, TOTAL 0.2 mg/dL (0.0-1.4)
[2020-12-21 03:53] LABS: MYOGLOBIN 212 ng/mL (0 - 121)
[2020-12-21 04:38] LABS: URINE BILIRUBIN - DIPSTICK NEGATIVE (NEGATIVE); URINE BLOOD DIPSTICK SMALL (NEGATIVE); URINE COLOR YELLOW; URINE GLUCOSE - DIPSTICK NEGATIVE (NEGATIVE); URINE KETONE TRACE mg/dL (NEGATIVE); URINE LEUK ESTERASE NEGATIVE (NEGATIVE); URINE PROTEIN - DIPSTICK NEGATIVE (NEG-TRACE); URINE SPECIFIC GRAVITY >=1.030; URINE UROBILINOGEN - DIPSTICK 0.2 E.U./dL (0.2)
[2020-12-21 04:40] LABS: URINE NITRITE - DIPSTICK NEGATIVE (Negative)
[2020-12-21 04:46] LABS: URINE AMORPH SEDIMENT FEW hpf (NONE-FER); URINE SQUAMOUS EPITHELIAL CELL FEW EPI/hpf (0-FEW); URINE WBC 0-2 WBC/hpf (0-5)
[2020-12-21] MEDS ORDERED: DILANTIN100 MG PO (05:59)
[2020-12-21] MEDS ORDERED: DEPAKOTE500 MG PO (05:59)
[2020-12-21 10:15] VITALS: BP 127/74
== END 2020-12-21 10:15 | DRG 101 ==
LOC: ED 02:54
PROVIDERS: Family Medicine
DX: G40.409 Other generalized epilepsy and epileptic syndromes, not intractable, without status epilepticus (principal); I10 Essential (primary) hypertension
CPT/HCPCS: J2060

== ENCOUNTER 2021-01-30 19:13 | Emergency (ER) | payer OTHER ==
[~2021-01-30] VITALS: Ht 188 cm; Wt 100.0 kg
[2021-01-30 19:47] LABS: HEMATOCRIT 37.9 % (39.0-50.0); HEMOGLOBIN 11.5 g/dl (14.0-18.0); IMMATURE GRANULOCYTES 0.5 % (0.0-5.0); MEAN CELL VOLUME 85.9 fL CALC (80.0-100.0); MEAN CORPUSCULAR HGB 26.1 pG CALC (26.0-32.0); MEAN CORPUSCULAR HGB CONC 30.3 g/dL CAL (32.0-36.0); NEUT# 4.83 thou/uL (1.82-7.42); RED BLOOD COUNT 4.41 mill/uL (4.70-6.10); RED CELL DISTRI WIDTH 19.3 % (11.5-15.5)
[2021-01-30 20:07] LABS: ALBUMIN 3.9 g/dL (3.2-5.0); ALKALINE PHOSPHATASE 110 u/l (38-126); BUN 10 mg/dL (8-23); BUN/CREATININE RATIO 11 (12-20 (CALC)); CARBON DIOXIDE 29 mmol/l (22-30); CHLORIDE 99 mmol/l (95-108); CREATININE 0.9 mg/dL (0.7-1.3); GFR > 60 ML/MIN (>=60 (CALC)); GFR FOR AFR.AMER. > 60 ML/MIN (>=60 (CALC)); PHENYTOIN (DILANTIN) < 3 ug/mL (10 - 20); SGOT/AST 51 u/l (19-48); SODIUM 137 mmol/l (137-146); TOTAL PROTEIN 7.8 g/dL (6.3-8.2)
[2021-01-30 20:11] LABS: ANION GAP 13 (6-22 (CALC)); BILIRUBIN, TOTAL 0.4 mg/dL (0.0-1.4); POTASSIUM 3.8 mmol/l (3.5-5.1)
[2021-01-30 23:33] VITALS: BP 160/73
== END 2021-01-30 23:14 | DRG 101 ==
LOC: ED 19:13
PROVIDERS: Family Medicine
DX: G40.909 Epilepsy, unspecified, not intractable, without status epilepticus (principal); I10 Essential (primary) hypertension; T42.0X6A Underdosing of hydantoin derivatives, initial encounter; T42.6X6A Underdosing of other antiepileptic and sedative-hypnotic drugs, initial encounter; Z91.128 Patient's intentional underdosing of medication regimen for other reason; Z20.822 Contact with and (suspected) exposure to COVID-19

== ENCOUNTER 2022-02-17 19:31 | Emergency (ER) | payer OTHER ==
[~2022-02-17] VITALS: Ht 188 cm; Wt 84.0 kg
[2022-02-17 20:24] LABS: URINE BILIRUBIN - DIPSTICK NEGATIVE (NEGATIVE); URINE BLOOD DIPSTICK NEGATIVE (NEGATIVE); URINE COLOR YELLOW; URINE GLUCOSE - DIPSTICK NEGATIVE (NEGATIVE); URINE KETONE NEGATIVE (NEGATIVE); URINE LEUK ESTERASE NEGATIVE (NEGATIVE); URINE PH 7.5 (4.5-8.0); URINE PROTEIN - DIPSTICK NEGATIVE (NEG-TRACE); URINE SPECIFIC GRAVITY 1.025; URINE UROBILINOGEN - DIPSTICK 0.2 E.U./dL (0.2)
[2022-02-17 20:27] LABS: HEMATOCRIT 42.4 % (39.0-50.0); IMMATURE GRANULOCYTES 0.2 % (0.0-5.0); MEAN CORPUSCULAR HGB 29.7 pG CALC (26.0-32.0); MEAN CORPUSCULAR HGB CONC 32.1 g/dL CAL (32.0-36.0); NEUT# 1.98 thou/uL (1.82-7.42); RED BLOOD COUNT 4.58 mill/uL (4.70-6.10); RED CELL DISTRI WIDTH 15.5 % (11.5-15.5)
[2022-02-17 20:30] LABS: HEMOGLOBIN 13.6 g/dl (14.0-18.0); MEAN CELL VOLUME 92.6 fL CALC (80.0-100.0)
[2022-02-17 20:31] LABS: URINE NITRITE - DIPSTICK NEGATIVE (Negative)
[2022-02-17 20:35] LABS: ALKALINE PHOSPHATASE 108 u/l (38-126); ANION GAP 16 (6-22 (CALC)); BILIRUBIN, TOTAL 0.4 mg/dL (0.0-1.4); BUN 13 mg/dL (8-23); BUN/CREATININE RATIO 15 (12-20 (CALC)); CARBON DIOXIDE 29 mmol/l (22-30); CHLORIDE 98 mmol/l (95-108); CREATININE 0.9 mg/dL (0.7-1.3); GFR FOR AFR.AMER. > 60 ML/MIN (>=60 (CALC)); GFR OTHER RACES > 60 ML/MIN (>=60 (CALC)); POTASSIUM 4.3 mmol/l (3.5-5.1); SGOT/AST 33 u/l (19-48); SODIUM 138 mmol/l (137-146); TOTAL PROTEIN 8.8 g/dL (6.3-8.2)
[2022-02-17 20:46] LABS: ALBUMIN 4.8 g/dL (3.2-5.0)
[2022-02-17 20:47] LABS: MYOGLOBIN 92 ng/mL (0 - 121)
[2022-02-17 22:26] LABS: PHENYTOIN (DILANTIN) 20 ug/mL (10 - 20)
[2022-02-17 23:50] VITALS: BP 133/83
== END 2022-02-18 00:40 | DRG 101 ==
LOC: ED 19:31
PROVIDERS: Emergency Medicine
DX: G40.909 Epilepsy, unspecified, not intractable, without status epilepticus (principal); I10 Essential (primary) hypertension
CPT/HCPCS: J1953

== ENCOUNTER 2023-07-23 05:25 | Emergency (ER) | payer OTHER ==
[2023-07-23] VITALS (50 sets, daily range): BP systolic 120–207; BP diastolic 75–126
[~2023-07-23] VITALS: Ht 188 cm; Wt 104.0 kg
[~2023-07-23 05:25] MED LIST changes: +AMLODIPINE BESY10 MG PO; +ASPIRINCHW 81MG PO
[2023-07-23] MEDS ORDERED: SODIUM CHLORIDE 0.9% 1,000 ML IV ONE ×2 (05:40→11:05)
[2023-07-23] MEDS ORDERED: KENALOG15 GM/TUBE EX (06:03)
[2023-07-23] MEDS ORDERED: PHENYTOIN PO (06:04)
[2023-07-23] MEDS ORDERED: [UNRECOGNIZED DRUG - OTHER] EX (06:05)
[2023-07-23] MEDS ORDERED: CONSTULOSE10 GM/15 M PO (06:06)
[2023-07-23] MEDS ORDERED: HYDROCHLOROT25 MG PO (06:07)
[2023-07-23] MEDS ORDERED: DIVALPROEX SOD500 M3 PO (06:08)
[2023-07-23] MEDS ORDERED: TINACTIN13 EX (06:10)
[2023-07-23 06:42] LABS: BASO% 0.6 % (0-3); EOS% 0.2 % (0-8); HEMATOCRIT 39.8 % (39.0-50.0); IMMATURE GRANULOCYTES 0.8 % (0.0-5.0); LYMPH% 12.7 % (15-41); MEAN CELL VOLUME 96.8 fL CALC (80.0-100.0); MEAN CORPUSCULAR HGB 29.2 pG CALC (26.0-32.0); MEAN CORPUSCULAR HGB CONC 30.2 g/dL CAL (32.0-36.0); MONO% 9.6 % (2-13); NEUT# 3.73 thou/uL (1.82-7.42); NEUT% 76.1 % (42-76); RED BLOOD COUNT 4.11 mill/uL (4.70-6.10); RED CELL DISTRI WIDTH 15.8 % (11.5-15.5)
[2023-07-23 06:47] LABS: HEMATOCRIT 39.3 % (39.0-50.0)
[2023-07-23 06:59] LABS: ALKALINE PHOSPHATASE 88 u/l (38-126); BILIRUBIN, TOTAL 0.4 mg/dL (0.2-1.3); BUN 12 mg/dL (8-23); BUN/CREATININE RATIO 13 (12-20 (CALC)); CHLORIDE 104 mmol/l (95-108); CREATININE 0.9 mg/dL (0.7-1.3); GFR FOR AFR.AMER. > 60 ML/MIN (>=60 (CALC)); GFR OTHER RACES > 60 ML/MIN (>=60 (CALC)); POTASSIUM 4.3 mmol/l (3.5-5.1); SGOT/AST 32 u/l (19-48); SODIUM 138 mmol/l (137-146); TOTAL PROTEIN 7.1 g/dL (6.3-8.2)
[2023-07-23 07:00] LABS: ANION GAP 12 (6-22 (CALC)); CARBON DIOXIDE 26 mmol/l (22-30)
[2023-07-23 07:57] LABS: URINE BILIRUBIN - DIPSTICK Negative (NEGATIVE); URINE BLOOD DIPSTICK Negative (NEGATIVE); URINE GLUCOSE - DIPSTICK Negative (NEGATIVE); URINE KETONE Negative (NEGATIVE); URINE LEUK ESTERASE Negative (NEGATIVE); URINE NITRITE - DIPSTICK Negative (Negative); URINE PH 8.5 (4.5-8.0); URINE PROTEIN - DIPSTICK Negative (NEG-TRACE); URINE SPECIFIC GRAVITY 1.025; URINE UROBILINOGEN - DIPSTICK 0.2 E.U./dL (0.2)
[2023-07-23 07:59] LABS: URINE COLOR Yellow
[2023-07-23] MEDS ORDERED: MIDAZOLAM HCL 2 MG/2 ML VIAL IV ONE (08:25)
[2023-07-23] MEDS ORDERED: MIDAZOLAM HCL 2 MG/2 ML VIAL ONE (08:25)
[2023-07-23] MEDS ORDERED: PROPOFOL 100 ML IV ONE ×4 (08:30→14:25)
[2023-07-23] MEDS ORDERED: ETOMIDATE 20 MG/10 ML SDV IV ONE (08:30)
[2023-07-23] MEDS ORDERED: ROCURONIUM BROMIDE 10 MG/ML 5ML VIAL IV ONE (08:30)
[2023-07-23] MEDS ORDERED: MIDAZOLAM HCL 10 MG in SODIUM CHLORIDE 0.9% 90 ML IV ONE (09:15)
[2023-07-23 09:33] LABS: PHENYTOIN (DILANTIN) 5 ug/mL (10 - 20)
[2023-07-23] MEDS ORDERED: AZITHROMYCIN 500 MG in SODIUM CHLORIDE 0.9% 250 ML IV ONE (11:00)
[2023-07-23] MEDS ORDERED: AZITHROMYCIN 500 MG/VIAL SDV IV ONE (11:25)
== END 2023-07-23 16:30 | disposition short-term general hospital (02) | DRG 100 ==
LOC: ED 05:25
PROVIDERS: Family Medicine
PROC: 0T9B70Z Drainage of Bladder with Drainage Device, Via Natural or Artificial Opening (ICD-10-PCS; principal; 2023-07-23)
PROC: 5A1935Z Respiratory Ventilation, Less than 24 Consecutive Hours (ICD-10-PCS; 2023-07-23)
PROC: 02HV33Z Insertion of Infusion Device into Superior Vena Cava, Percutaneous Approach (ICD-10-PCS; 2023-07-23)
PROC: 0BH17EZ Insertion of Endotracheal Airway into Trachea, Via Natural or Artificial Opening (ICD-10-PCS; 2023-07-23)
DX: G40.409 Other generalized epilepsy and epileptic syndromes, not intractable, without status epilepticus (principal); J18.9 Pneumonia, unspecified organism; I10 Essential (primary) hypertension
CPT/HCPCS: J1953